=== PATIENT | male | born 1990 | race Two or more races ===

== ENCOUNTER 2017-04-18 18:30 | Emergency (ER) | payer SELFPAY ==
[~2017-04-18] VITALS: Ht 177.8 cm; Wt 63.5 kg
[2017-04-18 18:45] VITALS: BP 137/81
== END 2017-04-18 19:08 | disposition home or self-care (01) ==
LOC: ER 18:34
DX: S60.811A Abrasion of right wrist, initial encounter (principal); L03.119 Cellulitis of unspecified part of limb; Z88.0 Allergy status to penicillin; X58.XXXA Exposure to other specified factors, initial encounter; Y92.89 Other specified places as the place of occurrence of the external cause; Y93.89 Activity, other specified; Y99.8 Other external cause status
CPT/HCPCS: 99283; A4606; Z7610